=== PATIENT | female | born 1950 | race Caucasian/White ===

== ENCOUNTER → 2017-01-28 | Outpatient (CLI) | payer MEDICARE, OTHER ==
[~2017-01-28] MED LIST: ASPIR 8181 MG PO; CARAFATE 1 GM TA1 GM PO; CATAPRES 0.1MG0.1 MG PO; CLARITIN10 MG PO; CYMBALTA60 MG PO; ELIQUIS 5 MG TAB5 MG PO; KEFLEX500 MG PO; LEVOXYL112 MCG PO; LINZESS145 MCG PO; LOSARTAN POTAS100 MG PO; NEURONTIN 300300 MG PO; NEXIUM40 MG PO; NIFEDIPINE ER60 MG PO; NORCO 7.5-3251 EACH PO; OXYBUTYNIN CHLOR5 MG PO; POTASSIUM CHLO10 MEQ PO; PROAIR HFA8.5 GM INH; SOTALOL120 MG PO; TESSALON PERLE100 MG PO; TRAZODONE HCL100 MG PO; VOLTAREN EC 2525 MG PO; ZANAFLEX4 MG PO
== END ==
LOC: MRI 12:52
DX: R51 Headache (principal); R55 Syncope and collapse; M79.7 Fibromyalgia; R26.81 Unsteadiness on feet; R05 Cough; M54.2 Cervicalgia; M62.838 Other muscle spasm; M47.816 Spondylosis without myelopathy or radiculopathy, lumbar region; K59.09 Other constipation; G89.4 Chronic pain syndrome; I10 Essential (primary) hypertension; F41.9 Anxiety disorder, unspecified; F33.9 Major depressive disorder, recurrent, unspecified; W19.XXXA Unspecified fall, initial encounter; M50.222 Other cervical disc displacement at C5-C6 level; M99.71 Connective tissue and disc stenosis of intervertebral foramina of cervical region
CPT/HCPCS: 36415; 70553; 72141; 82565; 84520; A9577

== ENCOUNTER 2020-10-20 20:36 | Emergency (ER) | payer MEDICARE, OTHER | END 2020-10-20 23:02 | disposition home or self-care (01) | LOC: ER1 20:36 | DX: S09.90XA Unspecified injury of head, initial encounter (principal); S16.1XXA Strain of muscle, fascia and tendon at neck level, initial encounter; S20.212A Contusion of left front wall of thorax, initial encounter; S80.02XA Contusion of left knee, initial encounter; I11.0 Hypertensive heart disease with heart failure; I50.9 Heart failure, unspecified; I48.91 Unspecified atrial fibrillation; J45.909 Unspecified asthma, uncomplicated; W18.09XA Striking against other object with subsequent fall, initial encounter; Y92.009 Unspecified place in unspecified non-institutional (private) residence as the place of occurrence of the external cause | CPT/HCPCS: 70450; 70486; 71046; 72125; 73564; 99284 ==

== ENCOUNTER → 2020-12-21 | Outpatient (CLI) | payer MEDICARE, OTHER ==
[~2020-12-21] MED LIST changes: +PREDNISONE 20 M20 MG PO
[2020-12-21 09:41] LABS: HEMOGLOBIN 13.8 gm/dl (12.3-15.3); RED BLOOD COUNT 4.78 M/UL (4.00-5.10); WHITE BLOOD COUNT 11.7 K/UL (4.5-11.0)
[2020-12-21 10:05] LABS: BUN/CREATININE RATIO 26 (0-10)
== END ==
LOC: LAB 09:11
PROVIDERS: Family Medicine
DX: I10 Essential (primary) hypertension (principal); R39.0 Extravasation of urine; Z79.899 Other long term (current) drug therapy
CPT/HCPCS: 36415; 80053; 80061; 84439; 84443; 85025

== ENCOUNTER 2021-01-06 22:23 | Emergency (ER) | payer MEDICARE, OTHER ==
[~2021-01-06 22:23] MED LIST changes: -PREDNISONE 20 M20 MG PO
[2021-01-06 22:53] LABS: HEMOGLOBIN 14.4 gm/dl (12.3-15.3); RED BLOOD COUNT 4.95 M/UL (4.00-5.10); WHITE BLOOD COUNT 7.9 K/UL (4.5-11.0)
[2021-01-06 23:32] LABS: BUN/CREATININE RATIO 22 (0-10)
[2021-01-07] MEDS ORDERED: PREDNISONE 20 M20 MG PO (00:10)
== END 2021-01-07 00:30 | disposition home or self-care (01) ==
LOC: ER1 22:23
PROVIDERS: Emergency Medicine
DX: J44.1 Chronic obstructive pulmonary disease with (acute) exacerbation (principal); J40 Bronchitis, not specified as acute or chronic; I48.91 Unspecified atrial fibrillation; Z20.822 Contact with and (suspected) exposure to COVID-19; I11.0 Hypertensive heart disease with heart failure; I50.9 Heart failure, unspecified; Z88.8 Allergy status to other drugs, medicaments and biological substances
CPT/HCPCS: 0240U; 71045; 80053; 82550; 82553; 83605; 83690; 83735; 83874; 83880; 84100; 84484; 85025; 85610; 85730; 87040; 93005; 94664; 99285

== ENCOUNTER 2021-12-08 13:16 | Emergency (ER) | payer MEDICARE, OTHER ==
[~2021-12-08 13:16] MED LIST changes: +PREDNISONE 20 M20 MG PO
[2021-12-08 14:04] LABS: HEMOGLOBIN 11.3 gm/dl (12.3-15.3); RED BLOOD COUNT 4.37 M/UL (4.00-5.10); WHITE BLOOD COUNT 9.2 K/UL (4.5-11.0)
[2021-12-08 14:23] LABS: BUN/CREATININE RATIO 20 (0-10)
== END 2021-12-08 18:06 | disposition home or self-care (01) ==
LOC: ER1 13:16
PROVIDERS: Physician Assistant
DX: S30.0XXA Contusion of lower back and pelvis, initial encounter (principal); I50.9 Heart failure, unspecified; K92.2 Gastrointestinal hemorrhage, unspecified; I48.91 Unspecified atrial fibrillation; W19.XXXA Unspecified fall, initial encounter; Y92.481 Parking lot as the place of occurrence of the external cause
CPT/HCPCS: 72100; 72131; 80048; 85025; 99284

== ENCOUNTER → 2022-04-17 | Outpatient (CLI) | payer MEDICARE, OTHER | LOC: HEART 5 04-16 08:00 | DX: I20.9 Angina pectoris, unspecified (principal); I48.91 Unspecified atrial fibrillation; I11.0 Hypertensive heart disease with heart failure; I50.9 Heart failure, unspecified; R42 Dizziness and giddiness; R06.02 Shortness of breath; R60.9 Edema, unspecified; I08.1 Rheumatic disorders of both mitral and tricuspid valves; I27.20 Pulmonary hypertension, unspecified | CPT/HCPCS: 78452; 93306; A9502; J2785 ==

== ENCOUNTER → 2022-05-02 | Outpatient (CLI) | payer MEDICARE, OTHER | LOC: EXRD 09:41 | DX: I20.9 Angina pectoris, unspecified (principal); I10 Essential (primary) hypertension; R94.39 Abnormal result of other cardiovascular function study | CPT/HCPCS: 71046 ==

== ENCOUNTER → 2022-05-06 | Outpatient (CLI) | payer MEDICARE, OTHER ==
[~2022-05-06] MED LIST changes: +ALENDRONATE SOD70 MG PO; +AMLODIPINE BESY10 MG PO; +ARTHRITIS PAIN150 GM TP; +DULOXETINE HCL60 MG PO; +FLONASE 0.05% N16 GM; +GABAPENTIN600 MG PO; +HYDROXYZINE HCL25 MG PO; +ISOSORBIDE MONO30 MG PO; +KLONOPIN TAB 00.5 MG PO; +NYAMYC60 GM TP; +OXYCODONE-ACET1 EACH PO; +PROTONIX 40 MG40 M1 PO; +PYRIDOSTIGMINE60 MG PO; +ROPINIROLE HCL1 MG PO; +TIZANIDINE HCL4 MG PO; +VALSARTAN40 MG PO
== END ==
LOC: CATH 07:49
DX: I25.110 Atherosclerotic heart disease of native coronary artery with unstable angina pectoris (principal); I34.0 Nonrheumatic mitral (valve) insufficiency; I27.20 Pulmonary hypertension, unspecified; I48.0 Paroxysmal atrial fibrillation; I95.1 Orthostatic hypotension; I47.1 Supraventricular tachycardia; I49.5 Sick sinus syndrome; I11.0 Hypertensive heart disease with heart failure; I50.30 Unspecified diastolic (congestive) heart failure; M19.90 Unspecified osteoarthritis, unspecified site; J44.9 Chronic obstructive pulmonary disease, unspecified; K21.9 Gastro-esophageal reflux disease without esophagitis; E03.9 Hypothyroidism, unspecified; E66.9 Obesity, unspecified; Z88.1 Allergy status to other antibiotic agents; Z88.8 Allergy status to other drugs, medicaments and biological substances; Z79.01 Long term (current) use of anticoagulants; Z79.82 Long term (current) use of aspirin; Z68.33 Body mass index [BMI] 33.0-33.9, adult
CPT/HCPCS: 36415; 71045; 80061; 99152; 99153; C1751; C1769; C1894; J1644; J2250; J3010; Q9967

== ENCOUNTER → 2022-05-14 | Outpatient (CLI) | payer MEDICARE, OTHER | LOC: HEART 5 05-07 14:00 | DX: R55 Syncope and collapse (principal); R00.2 Palpitations ==